=== PATIENT | male | born 1990 | race Two or more races ===

== ENCOUNTER 2020-12-22 19:56 | Emergency (ER) | payer OTHER ==
[~2020-12-22] VITALS: Ht 180.3 cm; Wt 77.0 kg
[2020-12-22 20:00] VITALS: BP 139/93
== END 2020-12-22 21:54 | disposition home or self-care (01) ==
LOC: ER 19:57
DX: R10.13 Epigastric pain (principal); R20.2 Paresthesia of skin; F41.9 Anxiety disorder, unspecified; F20.9 Schizophrenia, unspecified
CPT/HCPCS: 99281